=== PATIENT | female | born 1975 | race African-American/Black ===

== ENCOUNTER 2020-10-25 13:22 | Emergency (ER) | payer BC, OTHER ==
[~2020-10-25] VITALS: Ht 165.1 cm; Wt 87.1 kg
[2020-10-25] MEDS ORDERED: MORPHINE SULF INJ 2 MG/ML SYRINGE 1ML IV ONE (17:00)
[2020-10-25] MEDS ORDERED: ONDANSETRON HCL 4 MG/2 ML VIAL IV ONE (17:00)
[2020-10-25 18:59] VITALS: BP 152/99
[2020-10-25] MEDS ORDERED: IBUPROFEN 800 MG TAB PO ONE (19:15)
== END 2020-10-25 19:50 | disposition short-term general hospital (02) ==
LOC: ER 13:22
DX: S52.022A Displaced fracture of olecranon process without intraarticular extension of left ulna, initial encounter for closed fracture (principal); X58.XXXA Exposure to other specified factors, initial encounter; Y93.89 Activity, other specified; Y92.89 Other specified places as the place of occurrence of the external cause; Y99.8 Other external cause status
CPT/HCPCS: 73030; 73080; 96374; 96375; 99285; J2270; J2405